=== PATIENT | male | born 1965 | race Caucasian/White ===

== ENCOUNTER 2019-06-15 12:41 | Emergency (ER) | payer OTHER ==
[~2019-06-15] VITALS: Ht 167.6 cm; Wt 98.9 kg
[2019-06-15] MEDS ORDERED: Bactroban Oint22 GM T (13:27)
[2019-06-15] MEDS ORDERED: SEPTDS PO (13:27)
[2019-06-15] MEDS ORDERED: IBU800 MG PO (13:27)
[2019-06-15] MEDS ORDERED: CEPHALEXIN500 M1 PO (13:27)
[2019-06-15] MEDS ORDERED: NORCO 5-325 TA1 EACH PO (13:30)
== END 2019-06-15 13:39 | disposition home or self-care (01) ==
LOC: ED 12:41
DX: T23.251A Burn of second degree of right palm, initial encounter (principal); T23.221A Burn of second degree of single right finger (nail) except thumb, initial encounter; Z23 Encounter for immunization; I10 Essential (primary) hypertension; E11.9 Type 2 diabetes mellitus without complications; X08.8XXA Exposure to other specified smoke, fire and flames, initial encounter; Y93.89 Activity, other specified; Y92.89 Other specified places as the place of occurrence of the external cause; Y99.8 Other external cause status